=== PATIENT | male | born 1970 | race Caucasian/White ===

== ENCOUNTER 2022-04-05 15:23 | Emergency (ER) | payer SELFPAY ==
[~2022-04-05] VITALS: Ht 167.6 cm; Wt 80.0 kg
[2022-04-05 15:34] VITALS: BP 121/80
[2022-04-05] MEDS ORDERED: KETOROLAC 60MG/2ML VIAL IM ONE (16:45)
[2022-04-05] MEDS ORDERED: BACL-141 MT (17:16)
[2022-04-05] MEDS ORDERED: NAPR-681 MT (17:16)
== END 2022-04-05 17:26 | disposition home or self-care (01) ==
LOC: ER 15:23
DX: S42.144A Nondisplaced fracture of glenoid cavity of scapula, right shoulder, initial encounter for closed fracture (principal); Z88.1 Allergy status to other antibiotic agents; X50.0XXA Overexertion from strenuous movement or load, initial encounter; Y93.B9 Activity, other involving muscle strengthening exercises; Y92.39 Other specified sports and athletic area as the place of occurrence of the external cause; Y99.8 Other external cause status
CPT/HCPCS: 73030; 96372; 99283; J1885